=== PATIENT | female | born 1965 | race Caucasian/White ===

== ENCOUNTER → 2016-11-03 | Day surgery (SDC) | payer BC ==
[2016-10-24 08:20] VITALS: Ht 162.6 cm; Wt 113.6 kg
[~2016-11-03] VITALS: Ht 162.6 cm; Wt 113.6 kg
[~2016-11-03] MED LIST: CALC600T9 PO; LIDOCAINE HCL 2% 2 ML VIAL (20MG/ML) ONE; LSN/10125 PO; MIDAZOLAM HCL 1 MG/ML 2ML VIAL ONE; PROPOFOL IV EMULSION 10 MG/ML 20 ML VIAL IV ONE; ZOLP10TA PO
--- NOTE | 2016-11-03 13:41 | Endo History and Physical ---
History & Physical Date of Service: Nov 03, 2016. Chief Complaint: SCREENING Referring Physician: DR CARVALHO History of Present Illness For colonoscopy Past Surgical History Hx Cardiac Surgery: No Hx Internal Defibrillator: No Hx Pacemaker: No Hx Abdominal Surgery: Yes (PARTIAL HYSTER, APPY) Hx of Implantable Prosthesis: No Hx Post-Op Nausea and Vomiting: No Hx Cancer Surgery: No Hx Thoracic Surgery: No Hx Orthopedic: Yes (LT BUNIONECTOMY) Hx Urinary Tract Surgery: No Family History Colon CA Social History Smoking Status: Never Smoker Hx Substance Use: No Hx Alcohol Use: Yes ("A FEW DRINKS A COUPLE TIMES A WEEK") Allergies Coded Allergies: Egg (Verified Allergy, Mild, ITCHY THROAT, 11/03/16) Sulfa Drugs (Verified Allergy, Mild, RASH, 11/03/16) Metronidazole (Verified Allergy, Unknown, RASH, 11/03/16) Current Medications Reported Home Medications Medications Dose Route/Sig Max Daily Dose Days Date Category Calcium + D (Calcium Carbonate-Vitamin D) 1 Tab Tab 1 Tab PO QPM 10/24/16 Reported Ambien (Zolpidem Tartrate) 10 Mg Tab 0.5 Tab PO HS 10/24/16 Reported Lisinopril/Hctz 10/12.5 Mg (HCTZ/Lisinopril) 1 Ea Tab 1 Tab PO QPM 10/24/16 Reported Vital Signs Weight (Kilograms): 113.64 Height (Feet): 5 Height (Inches): 4 Date Time Temp Pulse Resp B/P (MAP) Pulse Ox O2 Delivery O2 Flow Rate FiO2 11/03/16 13:22 36.9 78 18 147/99 (115) 97 Room Air Physical Exam General Appearance: + obese Respiratory/Chest: Respiratory effort: no dyspnea Cardiovascular: Heart Auscultation: RRR Abdomen: Inspection & Palpation: soft Assessment and Plan for screening colonoscopy
--- NOTE | 2016-11-03 14:07 | Discharge Instructions ---
Endoscopy Patient Instructions Date / Procedure(s) Performed Nov 03, 2016. Colonoscopy Allergy Information Coded Allergies: Egg (Verified Allergy, Mild, ITCHY THROAT, 11/03/16) Sulfa Drugs (Verified Allergy, Mild, RASH, 11/03/16) Metronidazole (Verified Allergy, Unknown, RASH, 11/03/16) Discharge Date / Findings Nov 03, 2016. POLYP, Diverticulosis Medication Instructions Restart Stopped Medication(s): resume meds Reported Home Medications Medications Dose Route/Sig Max Daily Dose Days Date Category Calcium + D (Calcium Carbonate-Vitamin D) 1 Tab Tab 1 Tab PO QPM 10/24/16 Reported Ambien (Zolpidem Tartrate) 10 Mg Tab 0.5 Tab PO HS 10/24/16 Reported Lisinopril/Hctz 10/12.5 Mg (HCTZ/Lisinopril) 1 Ea Tab 1 Tab PO QPM 10/24/16 Reported Provider Instructions Activity Restrictions - No exercising or heavy lifting for 24 hours. - Do not drink alcohol the day of the procedure. - Do not drive a car or operate machinery until the day after the procedure. - Do not make any important decisions or sign important papers in 24 hours after the procedure. Following Day: - Return to full activity which may include returning to work/school. Diet Start your diet with liquids and light foods (jello, soup, juice, toast). Then eat your usual diet if not nauseated. Treatment For Common After Affects For mild abdominal pain, bloating, or excessive gas: - Rest - Eat lightly - Lie on right side Follow-Up Information Follow-up with DR CARVALHO as scheduled Anesthesia Information What You Should Know You have had a procedure that required some medicine to reduce anxiety and discomfort. This treatment is called moderate sedation. After receiving the treatment, you may be sleepy, but you will be able to breathe on your own. The effects of the treatment may last for several hours. Follow these instructions along with Activity/Diet recommendations noted above: * Do NOT do anything where dizziness or clumsiness would be dangerous. * Rest quietly at home today, then you can be up and about tomorrow. * Have a responsible person stay with you the rest of today. * You may have had an I.V. today. If so, you may take the dressing off later today. Recommendations Call your doctor if: * Trouble breathing * Continuous vomiting for more than 24 hours * Temperature above 101 degrees * Severe abdominal pain or bloating * Pain not relieved by pain medicine ordered * There is increased drainage or redness from any incision * A large amount of rectal bleeding greater than 2-3 tablespoons. (If you had a polyp/s removed or have hemorrhoids, a small amount of blood - from the rectum is to be expected.) * You have any unanswered questions or concerns. IN THE EVENT OF A SERIOUS EMERGENCY, GO TO THE NEAREST EMERGENCY ROOM Your discharge instructions were prepared by provider Cody Negro. Patient Instructions Signature Page Smita Villalpando Patient (or Guardian) Signature/Date: I have read and understand the instructions given to me by my caregivers. Caregiver/RN/Doctor Signature/Date: The above-named patient and/or guardian has received patient instructions on this date. + Original Patient Signature Page (only) stays with chart. Please make copy for patient.
--- NOTE | 2016-11-03 14:10 | GI REPORT ---
Procedure Date: 11/03/2016 1:36 PM Procedure: Colonoscopy Indications: Screening for colorectal malignant neoplasm Medicines: Midazolam 2 mg IV, Propofol total dose 300 mg IV, Lidocaine 40 mg IV Complications: No immediate complications. Estimated Blood Loss: Estimated blood loss was minimal. Procedure: Pre-Anesthesia Assessment: - Prior to the procedure, a History and Physical was performed, and patient medications, allergies and sensitivities were reviewed. The patient's tolerance of previous anesthesia was reviewed. - The risks and benefits of the procedure and the sedation options and risks were discussed with the patient. All questions were answered and informed consent was obtained. After I obtained informed consent, the scope was passed under direct vision. Throughout the procedure, the patient's blood pressure, pulse, and oxygen saturations were monitored continuously. The On-site loaner was introduced through the anus and advanced to the cecum, identified by appendiceal orifice and ileocecal valve. The colonoscopy was performed without difficulty. The patient tolerated the procedure well. The quality of the bowel preparation was good. Findings: A 3 mm polyp was found in the rectum. The polyp was sessile. The polyp was removed with a cold biopsy forceps. Resection and retrieval were complete. Estimated blood loss was minimal. A few diverticula were found in the sigmoid colon. Impression: - One 3 mm polyp in the rectum, removed with a cold biopsy forceps. Resected and retrieved. - Diverticulosis in the sigmoid colon. Recommendation: - Discharge patient to home (ambulatory). - Continue present medications. - Await pathology results. - Return to primary care physician DIOGENESN. oCdy Negro M.D. Cody Negro MD 11/03/2016 2:09:44 PM This report has been signed electronically. Note Initiated On: 11/03/2016 1:36 PM I attest to the content of the Intraoperative Record and orders documented therein, exceptions below
--- NOTE | 2016-11-03 14:25 | Anesthesiology Progress Note ---
Anesthesia Post Op Note Date & Time Nov 03, 2016 at 14:25 Vital Signs Pain Intensity: 0 Vital Signs Past 12 Hours Date Time Temp Pulse Resp B/P (MAP) Pulse Ox O2 Delivery O2 Flow Rate FiO2 11/03/16 14:10 91 20 141/98 (112) 97 Room Air 11/03/16 13:22 36.9 78 18 147/99 (115) 97 Room Air Notes Mental Status: alert / awake / arousable, participated in evaluation Pt Amnestic to Procedure: Yes Nausea / Vomiting: adequately controlled Pain: adequately controlled Airway Patency, RR, SpO2: stable & adequate BP & HR: stable & adequate Hydration State: stable & adequate Anesthetic Complications: no major complications apparent
[2016-11-03 14:43] VITALS: BP 147/87; PULSE 77; O2SAT 97
== END | disposition home or self-care (01) ==
LOC: C.GI 12:48
PROVIDERS: ATTEND Internal Medicine Gastroenterology
DX: Z12.11 Encounter for screening for malignant neoplasm of colon (principal); K62.1 Rectal polyp; K57.30 Diverticulosis of large intestine without perforation or abscess without bleeding; Z80.0 Family history of malignant neoplasm of digestive organs; Z79.899 Other long term (current) drug therapy

== ENCOUNTER → 2017-01-31 | Outpatient (CLI) | payer BC ==
[~2017-01-31] MED LIST changes: -LIDOCAINE HCL 2% 2 ML VIAL (20MG/ML) ONE; -MIDAZOLAM HCL 1 MG/ML 2ML VIAL ONE; -PROPOFOL IV EMULSION 10 MG/ML 20 ML VIAL IV ONE
--- NOTE | 2017-02-01 07:51 | MAMMOGRAPHY REPORT ---
BILATERAL DIGITAL SCREENING MAMMOGRAM TOMOSYNTHESIS WITH CAD: 01/31/2017 TECHNIQUE: Breast tomosynthesis in addition to standard 2D mammography was performed. Current study was also evaluated with a Computer Aided Detection (CAD) system. COMPARISON: Comparison is made to exams dated: 01/27/2015 mammogram, 01/31/2016 mammogram, 01/26/2014 m ammogram, 01/22/2013 mammogram, 01/22/2012 mammogram, and 01/19/2011 mammogram - [facility]. BREAST COMPOSITION: There are scattered areas of fibroglandular density in both breasts. FINDINGS: No suspicious masses, calcifications, or areas of architectural distortion are noted in ei ther breast. There has been no significant interval change compared to prior exams. Asymmetry in the left central/12:00 breast is stable compared to all available prior mammograms including the 2009 ex am. IMPRESSION: ACR BI-RADS CATEGORY 2: BENIGN There is no mammographic evidence of malignancy. A 1 year screening mammogram is recommended. The pa tient will receive written notification of the results. Approximately 10% of breast cancers are not detected with mammography. A negative mammographic report should not delay biopsy if a clinically suggestive mass is present. Jaz Morejon M.D. /:01/31/2017 10:13:03 Repair Cameraman: Kathya MALHOTRA)(M), [facility] letter sent: Normal 1/2 BI-RADS Code: ACR BI-RADS Category 2: Benign
== END | disposition home or self-care (01) ==
LOC: C.MAMM 09:11
PROVIDERS: ATTEND Family Medicine
DX: Z12.31 Encounter for screening mammogram for malignant neoplasm of breast (principal)

== ENCOUNTER 2024-01-25 07:57 | Observation (INO) ==
--- NOTE | 2023-12-24 13:31 | PAT Medication Instructions ---
Medication Instructions Date of Service December 24, 2023 Home Medications lisinopril 20 mg-hydrochlorothiazide 12.5 mg tablet 1 tab PO HS lorazepam 0.5 mg tablet 0.5 mg PO DAILY PRN Anxiety tirzepatide (weight loss) 7.5 mg/0.5 mL subcutaneous pen injector (Zepbound) 7.5 mg subcut WK zolpidem 10 mg tablet 10 mg PO HS Take morning of surgery With a small sip of water, OTHERWISE NOTHING TO EAT OR DRINK AFTER MIDNIGHT: lorazepam 0.5 mg tablet 0.5 mg PO DAILY PRN Anxiety (if needed) Take evening before surgery lisinopril 20 mg-hydrochlorothiazide 12.5 mg tablet 1 tab PO HS lorazepam 0.5 mg tablet 0.5 mg PO DAILY PRN Anxiety (if needed) zolpidem 10 mg tablet 10 mg PO HS STOP taking at least 7 days before surgery tirzepatide (weight loss) 7.5 mg/0.5 mL subcutaneous pen injector (Zepbound) 7.5 mg subcut WK Other Notes If you have any questions please call us at [phone] or [phone] or [phone] or [phone]
--- NOTE | 2024-01-03 10:33 | Anesthesiology Consultation ---
Date of Service January 03, 2024 Assessment & Plan (1) Encounter for pre-operative examination: - tirzepatide instructions: Patient informed at PAT visit to stop 7 days prior to surgery- voiced understanding. - Outpatient joint assessment: Patient is currently scheduled for inpatient pathway. If re-evaluated and patient/surgeon requests outpatient pathway, patient is acceptable candidate for outpatient joint program from anesthesia standpoint pending surgeon's office assessment of pt motivation/support/c ompletion of same day joint program preop requirements. Chart Review Chart Review: Acceptable Risk for Surgery and Patient seen in Pre Admission Testing Teaching & Discussion Pre-Anesthesia Teaching/Discussion Notes: Instructed NPO after midnight before surgery, except medications with 15 cc of water. Medication instructions provided according to the [facility] guidelines. History Surgery Operation Date: 01/25/24 11:40 Proposed Procedures p Left Total Knee Arthroplasty - Reji Quintero DO Height/Weight Height: 5 ft 3 in Weight: 89.7 kg Allergies Allergy/AdvReac Type Severity Reaction Status Date / Time egg Allergy Mild Itchy Verified 12/24/23 10:47 Throat metronidazole AdvReac Intermediate Rash Verified 12/24/23 10:47 Sulfa (Sulfonamide AdvReac Intermediate Rash Verified 12/24/23 10:47 Antibiotics) Medications Home Medications Medication Instructions Recorded Confirmed Last Taken lisinopril 20 1 tab PO HS 12/24/23 12/24/23 Unknown mg-hydrochlorothiazide 12.5 mg tablet lorazepam 0.5 mg tablet 0.5 mg PO DAILY PRN Anxiety 12/24/23 12/24/23 Unknown tirzepatide (weight loss) 7.5 7.5 mg subcut WK 12/24/23 12/24/23 12/24/23 mg/0.5 mL subcutaneous pen injector (Zepbound) zolpidem 10 mg tablet 10 mg PO HS 12/24/23 12/24/23 Unknown Past Medical History Medical History (Updated 01/03/24 @ 10:38 by Rhonda Valentin PA-C) Acid reflux controlled, stable per pt Anxiety History of seizure in setting of significantly elevated BP [id number] other seizures HTN (hypertension) controlled, stable per pt Left knee DJD Patient denies h/o stroke, heart attack, heart failure, DM, blood clots/DVTs or blood transfusions. Exercise / Class Metabolic Activity II 4-5 Yardwork/Stairs/Walk up hill (denies chest discomfort or shortness of breath with one flight of stairs) Past Surgical History Surgical History History of bunionectomy left Hx of appendectomy Hx of colonoscopy Hx of hysterectomy Past Anesthesia History No Hx of Anesthesia Complications and No Family Hx of Anesthesia Complications History of PONV No Hx of PONV and Hx of Motion Sickness Social History Smoking Status: Never smoker Do You Dip or Chew Tobacco: No Hx Alcohol Use: Yes Alcohol type: wine alcohol intake frequency: a few times a week Hx Substance Use: No substance use type: does not use Review of Systems Patient denies chest pain, shortness of breath, dyspnea on exertion, snoring, witnessed apneas, fever, chills, cough, wheezing, or palpitations. Physical Exam Vital Signs Vitals BP 129/86 P 78 TEMP 98.4 SP02 97% on RA RESP 18 Physical Patient resting comfortably in chair in no acute distress, alert and oriented, responding appropriately throughout visit Full cervical extension range of motion without pain TMD 3.5 finger breadths Mallampati Score 2 Dentition: several caps/crowns, denies chipped or loose teeth, implants or bridges Lungs: normal respiratory effort. Good air movement, clear throughout to auscultation, no adventitious breath sounds Cardiac: regular rate and rhythm, no murmurs noted Carotid arteries: negative bruit bilat Lab Results Anesthesia Preop Results Results Anesthesia Widget: WBC 7.60 K/ul (4.8-10.8) 01/03/24 Hgb 15.8 g/dl (12.0-16.0) 01/03/24 Hct 45.3 % (37.0-47.0) 01/03/24 Plt 314 K/uL (130-400) 01/03/24 Na 132 mmol/L (136-145) L 01/03/24 K 3.7 mmol/L (3.5-5.1) 01/03/24 Cl 94 mmol/L (98-107) L 01/03/24 CO2 28 mmol/L (21-32) 01/03/24 BUN 6 mg/dl (6-23) 01/03/24 Creat 0.64 mg/dl (0.6-1.2) 01/03/24 Glucose Level 79 mg/dl (70-99(Fasting)) 01/03/24 PT 10.6 Seconds (9.0-12.0) 01/03/24 PTT 29 Seconds (21-31) 01/03/24 INR 1.0 (0.9-1.1) 01/03/24 Blood Type A Positive 01/03/24 Antibody Screen NEGATIVE 01/03/24 Testing Electrocardiogram Date: 01/03/24 NSR, rate 68 bpm Chest X-Ray Date: 01/03/24 No acute cardiopulmonary findings.
--- NOTE | 2024-01-24 06:47 | History & Physical Report ---
Date of Service January 24, 2024 Assessment & Plan (1) Left knee DJD: We will proceed with a left total knee arthroplasty. Postoperatively she will be started on aspirin for DVT prophylaxis and kept overnight in the hospital for postop medical management. She plans to see fit for play upon discharge. History of Present Illness Chief Complaint: Osteoarthritis of the left knee. Primary Care Provider: Bee Phipps DO Smita is a pleasant 58-year-old female who has been dealing with chronic increasing left knee pain. She has been seeing my partner, Dr. Nino. He has x-rays and an MRI of the left knee. The MRI shows severe medial compartmental arthritis. After failing extensive conservative treatment, she has elected to proceed with a left total knee arthroplasty.. Allergies Allergy/AdvReac Type Severity Reaction Status Date / Time egg Allergy Mild Itchy Verified 12/24/23 10:47 Throat metronidazole AdvReac Intermediate Rash Verified 12/24/23 10:47 Sulfa (Sulfonamide AdvReac Intermediate Rash Verified 12/24/23 10:47 Antibiotics) Home Medications Medication Instructions Recorded Confirmed Type lisinopril 20 1 tab PO HS 12/24/23 12/24/23 History mg-hydrochlorothiazide 12.5 mg tablet lorazepam 0.5 mg tablet 0.5 mg PO DAILY PRN Anxiety 12/24/23 12/24/23 History tirzepatide (weight loss) 7.5 7.5 mg subcut WK 12/24/23 12/24/23 History mg/0.5 mL subcutaneous pen injector (Zepbound) zolpidem 10 mg tablet 10 mg PO HS 12/24/23 12/24/23 History Past Med/Surg History Problem List Encounter for pre-operative examination Tear of meniscus of left knee Left knee DJD Thigh pain Bunion of great toe Right knee DJD Medical History History of seizure in setting of significantly elevated BP [id number] other seizures Acid reflux controlled, stable per pt Anxiety HTN (hypertension) controlled, stable per pt Left knee DJD Surgical History Hx of colonoscopy History of bunionectomy left Hx of hysterectomy Hx of appendectomy Social History Smoking Status: Never smoker Second Hand Exposure: No; Do You Dip or Chew Tobacco: No; Tobacco Cessation Education Requested by Patient: No Hx Alcohol Use: Yes Alcohol type: wine Hx Substance Use: No Preferred Language: Uzbek Communication Ability: Effective 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 Physical Exam On physical exam of the left knee, she is slight varus deformity. She has tenderness palpation of the distal medial femoral condyle and over the medial joint line.. Constitutional WD/WN, vitals as above Eyes PERRL, conjunctivae normal, anicteric sclerae ENMT external ear and nose normal, oropharynx normal Neck trachea midline, no thyromegaly Respiratory normal respiratory effort Cardiovascular RRR, no murmur, no edema Gastrointestinal (Abdomen) normal bowel sounds, soft, nontender, no hepatosplenomegaly Psychiatric A+Ox3, euthymic affect Results & Data Results & Data Laboratory Results . Diagnostic Findings X-rays of the left knee show medial compartmental arthritis with some joint space narrowing. MRI of the left knee shows more severe medial compartmental arthritis of the left knee.. PG Care Time/CCT Total # of Minutes Spent Total Time Spent with Patient: Total time spent is greater than 50% in coordination of care (as documented) at patient's floor/unit and/or counseling patient: Coding Level of Care Code None Diagnoses Left knee DJD M17.12
[~2024-01-25 07:57] MED LIST changes: +BUPIVACAINE 0.25% PF 30 ML VIAL ONE; +BUPIVACAINE 0.5 % 5 MG/1 ML PF 10ML VIAL ONE; -CALC600T9 PO; -LSN/10125 PO; -ZOLP10TA PO
[2024-01-25] MEDS: LR 60ML/HR IV SCH (08:23)
[2024-01-25] MEDS: FAMOTIDINE 20 MG TAB PO SCH (08:24)
[2024-01-25] MEDS: ACETAMINOPHEN 500 MG TAB PO SCH (08:24)
[2024-01-25] MEDS: GABAPENTIN 600 MG DOSE PO SCH (08:24)
[2024-01-25] MEDS: dexAMETHasone**PF** 10 MG/ML VIAL IV SCH (08:42)
[2024-01-25] MEDS: LR 500ML BOLUS, THEN 15ML/HR IV SCH (08:42)
--- NOTE | 2024-01-25 09:21 | History & Physical Bridge Note ---
Date of Service January 25, 2024 History & Physical Bridge Note I have examined the patient, reviewed the History & Physical and in the interval since the performance of the History & Physical I have noted the following changes of clinical significance: no changes noted
[2024-01-25] MEDS ORDERED: ONDANSETRON INJ 2 MG/ML 2 ML VIAL IV PRN (09:34)
[2024-01-25] MEDS ORDERED: ePHEDrine sulfate 50 MG/ML AMP IV PRN (09:34)
[2024-01-25] MEDS ORDERED: ATROPINE SULFATE 0.1 MG/ML 10ML SYR IV PRN (09:34)
[2024-01-25] MEDS ORDERED: fentaNYL citrate PF 100 MCG/2 ML VIAL ONE (10:08)
[2024-01-25] MEDS ORDERED: MIDAZOLAM HCL 1 MG/ML 2ML VIAL ONE (10:08)
[2024-01-25] MEDS: TRANEXAMIC ACID 1,000 MG **IV Pre-op IV SCH (10:10)
[2024-01-25] MEDS: ceFAZolin 2000MG 2,000 MG/15 ML SYR IV SCH ×2 (10:23→18:51)
[2024-01-25] MEDS ORDERED: PHENYLEPHRINE 100MCG/ML 10ML SYR IV ONE (10:40)
[2024-01-25] MEDS ORDERED: WATER, STERILE FOR INJ 10 ML VIAL ONE (10:40)
[2024-01-25] MEDS ORDERED: PROPOFOL IV EMULSION 10 MG/ML 20 ML VIAL IV ONE (10:40)
[2024-01-25] MEDS ORDERED: LIDOCAINE 2% 2 ML VIAL/AMP(20MG/ML) INFIL ONE (10:40)
[2024-01-25] MEDS ORDERED: ONDANSETRON INJ 2 MG/ML 2 ML VIAL ONE (10:46)
[2024-01-25] MEDS ORDERED: ePHEDrine sulfate 50 MG/5 ML SYR ONE (11:02)
[2024-01-25] MEDS: ROPIV 0.5% 246mg, Ketorolac 30mg, EPINEPHrine 0.5mg in NSS INFIL SCH (11:05)
[2024-01-25] MEDS: ORTHO JOINT ANESTHETIC ONE (11:06)
[2024-01-25] MEDS: TRANEXAMIC ACID 1,000 MG **IV Intra-op IV SCH (11:30)
--- NOTE | 2024-01-25 11:37 | Operative Report ---
PG Post Operative Report Pre & Post Diagnosis Operation Date: 01/25/24 10:00 Pre-Op Diagnosis: Left Knee Degenerative Joint Disease Post-Op Diagnosis: Left Knee Degenerative Joint Disease I identified the patient and participated in the time-out.: Yes Procedure Operation Date: 01/25/24 10:00 Actual Procedures p Left Total Knee Arthroplasty(Left) - Reji Quintero DO Surgeon Reji Quintero DO Director Emergency Department Yelena Del Real PA-C Estimated Blood Loss 30 Findings Consistent with Post-Op Diagnosis Specimens Left femoral and tibial bone Description of Procedure Implants used: I used a [employer] Person[employer] total knee arthroplasty system with a size 7 narrow CR femur, D tibia, 28 oval patella, and a size 14 medial congruent polyethylene bearing. All components were cemented in place with Biomet cement. Smita arrived [facility] for the above procedure. She was seen in the preoperative holding area and the operative extremity was identified and signed. She was given a preoperative antibiotic, TXA, a spinal anesthetic and an adductor nerve block. She was taken back to the operating room and laid on the table in supine position. She was given basic sedation. The operative knee was then prepped and draped in sterile fashion. A timeout was done, and the patient and the operative extremity was properly identified. A midline incision was made directly over the patella. Dissection was taken down to the extensor mechanism. A subvastus arthrotomy was used. The medial retinaculum was released and the fat pad was mostly excised. The knee was flexed and the ACL, PCL, and meniscus were removed. A drill was sent down the center of the femoral canal followed by an intramedullary nisa. Off that nisa a distal femoral cutting block was placed. 9 mm was resected off the distal femur at 5 of valgus. A posterior referencing AP sizing guide was then placed on the distal femur. The femur measured to be a size 7. 2 drill holes were placed in 3 of external rotation. A 4-in-1 cutting block was then impacted into place. Anterior, posterior, and chamfer cuts were then made. The proximal tibia was then exposed. An external tibial alignment guide was placed. A tibial cut guide was then anchored in place and the proximal tibia was then resected. The posterior aspect of the knee was then opened up and any additional meniscus fragments and osteophytes were removed. The tibia measured to be a size D. The tibial plate was then placed in the appropriate rotation and the tibia was drilled and punched. Trial components were then placed. I used a size 14 medial congruent polyethylene insert. The knee was brought through a full range of motion and felt to be stable. The peg holes for the femoral component were then drilled. The patella was then everted and 9 mm was resected off the posterior aspect of the patella. The patella measured to be a size 28 oval. 3 peg holes were then drilled. A trial patella was placed. The knee was once again brought through a full range of motion and felt to be stable. Trial components were then removed. The surrounding soft tissues were injected with 100 cc of an orthopedic pain control cocktail. All components were then cemented into place with Biomet cement. The final polyethylene insert was then snapped into place. Once cement was dry the tourniquet was deflated. Hemostasis was obtained. A dilute betadyne lavage was then done for 3 minutes. The joint was then irrigated with normal saline solution. The subvastus ar throtomy was then closed with #1 Vicryl suture. The skin was closed with 2-0 Vicryl, 3-0V lock suture, and nirav. A soft compressive dressing was placed. She was then transferred to a hospital bed and taken to the postanesthesia care unit in stable condition. She tolerated the procedure well. Yelena Del Real PA-C, was present for the entire procedure. He was critical for patient positioning, prepping, draping, retraction exposure, wound closure and application of sterile dressing. I attest to the content of the Intraoperative Record and any orders documented therein. Any exceptions are noted below.
[2024-01-25] MEDS ORDERED: MAGNESIUM HYDROXIDE SUSP 30 ML UDC PO PRN (12:10)
[2024-01-25] MEDS ORDERED: diphenhydrAMINE Capsule 25 MG CAP PO PRN (12:10)
[2024-01-25] MEDS ORDERED: ACETAMINOPHEN 1,000 MG/100 ML VIAL IV PRN (12:10)
[2024-01-25] MEDS ORDERED: bisacodyL 10 MG SUPP PR PRN (12:10)
[2024-01-25] MEDS ORDERED: NALOXONE HCL 0.4 MG/1 ML VIAL/CARP IV PRN (12:10)
[2024-01-25] MEDS ORDERED: HYDROmorphone INJ 0.5 MG/0.5 ML SYR IV PRN (12:10)
[2024-01-25] MEDS ORDERED: HYDROmorphone INJ 1 MG/ML SYRINGE IV PRN (12:10)
[2024-01-25] MEDS: fentaNYL citrate PF 100 MCG/2 ML VIAL IV PRN (12:30)
--- NOTE | 2024-01-25 14:03 | Anesthesiology Progress Note ---
Date of Service January 25, 2024 Anesthesia Post Procedure Vital Signs Vital Signs: Temp Pulse Pulse Resp BP Pulse Ox O2 Del Method 01/25/24 13:32 36.4 C L 80 14 129/80 97 Room Air 01/25/24 13:05 36.4 C L 85 16 122/82 95 Nasal Cannula 01/25/24 12:40 36.2 C L 84 18 124/80 96 Nasal Cannula 01/25/24 12:30 82 15 126/76 96 Nasal Cannula 01/25/24 12:20 97 H 17 138/75 96 Oxymask 01/25/24 12:10 36.2 C L 96 H 17 111/71 96 Oxymask 01/25/24 08:27 36.8 C 78 20 126/84 99 Room Air O2 Flow Rate 01/25/24 13:32 01/25/24 13:05 2 01/25/24 12:40 2 01/25/24 12:30 2 01/25/24 12:20 5 01/25/24 12:10 5 01/25/24 08:27 Pain Intensity Left Knee: Pain Intensity: 3 Transfer of Care Handoff Completed per policy Notes Mental Status: alert / awake / arousable Patient Amnestic to Procedure: Yes Nausea / Vomiting: adequately controlled Pain: adequately controlled Airway Patency, RR, SpO2: stable & adequate BP & HR: stable & adequate Hydration State: stable & adequate Neuraxial Anesthesia: was administered and sensory block is resolving Anesthetic Complications: no major complications apparent and Pt Satisfied with anesthetic care
[2024-01-25] MEDS: ONDANSETRON INJ 2 MG/ML 2 ML VIAL IV PRN (14:25)
[2024-01-25] MEDS: LORazepam 0.5 MG TAB PO PRN (14:25)
[2024-01-25] MEDS: KETOROLAC TROMETHAMINE 15 MG/ML VIAL IV SCH (14:25)
--- NOTE | 2024-01-25 16:41 | XRay Report ---
EXAM: Radiographs of the Left Knee 2 Views INDICATION: Postop replacement. TECHNIQUE: Frontal and lateral views of the left knee. COMPARISON: 03/30/2023 FINDINGS: Bones/joints: Satisfactory appearance of total knee arthroplasty with well-seated components. No fracture, subluxation or dislocation. Soft tissues: Expected soft tissue gas and swelling in the operative bed. IMPRESSION: Satisfactory appearance of left knee arthroplasty. Electronically signed by Kalpana Rosales 01-25-2024 4:40 PM
[2024-01-25] MEDS: oxyCODONE HCL IR 5 MG TAB (IMMEDIATE RELEASE) PO PRN (16:46)
[2024-01-25] MEDS: METOCLOPRAMIDE HCL INJ 5 MG/ML 2 ML VIAL IV PRN (19:29)
[2024-01-25] MEDS: SENNA 8.6 MG TAB PO SCH (20:31)
[2024-01-25] MEDS: DOCUSATE SODIUM 100 MG CAP PO SCH (20:31)
[2024-01-25] MEDS: ZOLPIDEM TARTRATE 5 MG TAB PO SCH (20:31)
[2024-01-25] MEDS: LISINOPRIL/HCTZ 20/12.5MG 1 TAB TAB PO SCH (20:32)
[2024-01-25 23:49] VITALS: RESP 18
[2024-01-26 07:58] VITALS: BP 116/80; PULSE 61; TEMP 97.7; O2SAT 98
--- NOTE | 2024-01-26 08:22 | Orthopedic Progress Note ---
Date of Service January 26, 2024 Assessment & Plan (1) Status post left knee replacement: Overall she is doing fairly well. She is not having much pain in the left knee. She can be seen by physical therapy today for ambulation and range of motion exercises. She is on aspirin for DVT prophylaxis. The nursing staff can change her dressing after physical therapy. She can be discharged home later today. She will follow-up orthopedics in 2 weeks. Vane Ordoñez was seen and examined at bedside this morning. Overall she is doing fairly well. She is not having too much pain in the left knee. She has been up and ambulating to the bathroom. She has no complaints.. Review of Systems All systems reviewed & are unremarkable except as noted in HPI & below. Physical Exam On physical exam of the left knee, the dressing is clean and dry. Her leg is out full extension. She has active dorsiflexion plantarflexion of her left ankle.. Results & Data Results & Data Laboratory Results . Diagnostic Findings Postoperative x-rays of the left knee show the prosthesis to be in anatomic alignment without any evidence of fracture complication, or loosening.. PG Care Time/CCT Total # of Minutes Spent Total Time Spent with Patient: Total time spent is greater than 50% in coordination of care (as documented) at patient's floor/unit and/or counseling patient: Coding Level of Care Code 71423 Post Operative Follow-Up Diagnoses Status post left knee replacement Z96.652
--- NOTE | 2024-01-26 08:23 | Discharge Summary ---
Date of Service January 26, 2024 Admission HPI (Per Admitting) Smita is a pleasant 58-year-old female who has been dealing with chronic increasing left knee pain. She has been seeing my partner, Dr. Nino. He has x-rays and an MRI of the left knee. The MRI shows severe medial compartmental arthritis. After failing extensive conservative treatment, she has elected to proceed with a left total knee arthroplasty.. Admission Exam (Per Admitting) On physical exam of the left knee, she is slight varus deformity. She has tenderness palpation of the distal medial femoral condyle and over the medial joint line.. Principal Diagnosis Same as "Discharge Diagnosis" noted below under Discharge Instructions. Discharge Exam On physical exam of the left knee, the dressing is clean and dry. Her leg is out full extension. She has active dorsiflexion plantarflexion of her left ankle.. Discharge Data Procedures Performed Operation Date: 01/25/24 10:00 Actual Procedures p Left Total Knee Arthroplasty(Left) - Reji Quintero DO Ordered Studies 01/25/24 05:00 US - OR guided needle placemen Routine Hospital Course (1) Status post left knee replacement: On January 25, 2024 Smita arrived at [facility] and underwent a left knee replacement without complication. She had a spinal anesthetic. Postoperatively she was started on aspirin for DVT prophylaxis and transferred to the general orthopedic floors. Her hospital course was uneventful. On postop day #1, her vital signs were stable and her pain was well-controlled. She was able to participate well with physical therapy doing ambulation and range of motion exercises. She was then discharged to home. She will follow-up orthopedics in 2 weeks. PG Care Time/CCT Total # of Minutes Spent Total Time Spent with Patient: Total time spent is greater than 50% in coordination of care (as documented) at patient's floor/unit and/or counseling patient: Discharge Plan Discharge Items Patient Disposition: Home - Self-Care Reason For Visit: S/P LEFT TOTAL KNEE ARTHROPLASTY Discharge Diagnosis: Left knee replacement Activity: Per Instructions section Non-emergency contact: Surgeon Call non-emergency contact if: your wound has increased redness and your wound has increased drainage Follow-up/Referrals: Bee Phipps DO [Primary Care Provider] - Diet: Regular Addtl Attending Provider Instructions: Activity and Therapy Recommendations: * If you are using [facility] then therapy will be provided at your home until they feel you have accomplished all of your goals. * If you are using [facility] then Physical Therapy will be provided until they feel you are ready to start Outpatient Physical Therapy. * If you are not using home therapy then Outpatient Physical Therapy should start about 3-5 days from your day of surgery. Therapy will last about 6-10 weeks * It is important not to put a pillow under your knee when you are relaxing or sleeping. It is just as important to make sure you are getting your knee perfectly straight as it is to regain your knee bend. * You were shown a series of exercises in the hospital. Do these exercises three times each day including the exercises you were shown in physical therapy. * Get up and walk several times each day. For the first four weeks, try not to stand or walk for more than one hour at a time. If you do stand or walk for more than one hour, you will not hurt anything, but your leg will likely swell. * As you feel comfortable, you may change from the walker or crutches to a cane and then to independent walking. Medications: * Narcotic You will likely be sent home from the hospital with a prescription for the narcotic pain medication that worked best throughout your stay. * Cefadroxil -take the antibiotic twice a day for 10 days to help prevent infection. * Aspirin Most patients will be required to take Aspirin 81mg twice a day for 6 weeks after surgery. This is obtained [id number] and a prescription is not necessary. * Other medications may be prescribed for specific circumstances. If you have any questions, please call the office at . * Resume previous home medications unless otherwise instructed TEDs/Elastic Stockings: The white elastic stockings help limit swelling and prevent blood clots from forming in your legs.~ The more you wear them, the more they work. Wear them for six weeks. Dressing Care: The dressing can be changed after physical therapy on postop day #1. Daily dry dressing changes for a few days, especially if the incision is still draining some. If the incision is not draining then you may leave the nirav open to air. If there is a little bit of drainage or if the nirav are getting stuck on your clothing then cover the incision with a dry dressing. The nirav will be removed at your 2 week follow-up appointment. Showering: You may shower 5 days from the day of surgery as long as the incision is no longer draining. You may shower with the nirav exposed. Let soapy water run over the nirav and pat them dry. Do not scrub or soak the incision. Diet: You may resume your previous diet. Things To Watch For: * Drainage from the incision site that occurs more than one week after your surgery. * Increased redness at the incision site. * Fever above 102 degrees Fahrenheit. * Unusual chest pain or shortness of breath. * Call [facility] at with any of the above problems Follow-Up Visit: Follow-up with Dr. Quintero's PA (Reji Sloan) 2-3 weeks after your day of surgery. He will remove your nirav and answer any questions. If you have any additional questions or concerns, Dr Quintero is usually in the office at the same time and will be available An appointment was probably scheduled when you signed-up for surgery in the office. If you have any questions call Office Instructions: More detailed instructions as well as Frequently Asked Questions were provided in a folder by our office when you signed-up for surgery. Please review these instructions when you get home. If you have any further questions or concerns, please feel free to call the office at [phone] Pending Studies at Discharge: No Stand-Alone Forms: My [facility], Smoking Cessation Medications and DC Order Prescriptions: New oxycodone 5 mg Tablet 5 mg PO Q4H PRN (Reason: pain) Qty: 30 0RF cefadroxil 500 mg capsule 500 mg PO BID 10 Days Qty: 20 0RF aspirin 81 mg Tablet,Delayed Release (Dr/Ec) 81 mg PO BID 42 Days Qty: 84 0RF Continued lisinopril-hydrochlorothiazide 20-12.5 mg tablet 1 tab PO HS zolpidem 10 mg tablet 10 mg PO HS Zepbound 7.5 mg/0.5 mL pen injector 7.5 mg SUBCUT WK Rx Instructions: Sunday lorazepam 0.5 mg Tablet 0.5 mg PO DAILY PRN (Reason: Anxiety) Discharge Orders: Discharge Order (Routine); Ordered 01/26/24 Ordered By: Reji Quintero Admission Data Admit Date/Time: 01/25/24 12:10 Attending Provider: Reji Quintero Admit Provider: Reji Quintero Primary Care Provider: Bee Phipps
[2024-01-26] MEDS: ASPIRIN 81 MG ECTAB PO SCH (08:51)
[2024-01-26] MEDS: dexAMETHasone 4 MG TAB PO SCH (08:51)
[2024-01-26] MEDS: MULTIVITAMIN TAB PO SCH (08:51)
== END 2024-01-26 11:14 | disposition home or self-care (01) ==
LOC: ASU 07:57 → 3W 07:57